=== PATIENT | female | born 1960 | race Caucasian/White ===

== ENCOUNTER → 2022-09-14 09:08 | Outpatient (CLI) | payer MEDICARE, SELFPAY ==
--- NOTE | 2022-09-14 09:21 | XR_ITS ---
FINAL REPORT CLINICAL HISTORY: Pain @ xiphoid process radiating to the Rt, around flank to thoracic region. NKT. MRI to follow FINDINGS: THORACIC SPINE Two views demonstrate no acute fracture. There are mild and moderate degenerative changes. There is no malalignment. IMPRESSION: Degenerative changes as above. Reviewed, Interpreted and Dictated by Lazaro Lawrence III, MD Transcribed by Karin Camp Authenticated and [facility]
== END ==
LOC: RAD 09:14
PROVIDERS: PCP Nurse Practitioner Family; Visit Provider Nurse Practitioner Family
DX: M54.6 Pain in thoracic spine (principal)
CPT/HCPCS: 72072

== ENCOUNTER → 2022-10-17 09:48 | Outpatient (POV) | payer MEDICARE, SELFPAY | PROVIDERS: Visit Provider Dermatology | DX: Z00.00 Encounter for general adult medical examination without abnormal findings (principal) ==

== ENCOUNTER → 2022-11-23 08:47 | Outpatient (POV) | payer MEDICARE, SELFPAY ==
[2022-11-23 09:54] VITALS: BP 132/66; PULSE 71; RESP 19; O2SAT 96; BMI 39.9
--- NOTE | 2022-11-23 12:14 | EXP.PAIN.OV ---
HPI Data of Consult Patient: new to practice Consult date: 11/23/22 Requesting Physician: Samantha Linares APRN Primary Care Provider: Eugenio Richards MD Consult Narrative Reason for consult: Mid back pain, right abdomen pain History of present illness: Ms. Brewster is a 62 year old female who presents today as a new patient. She is a referral from Anisha Staley's office. Today she rates her pain a 4 out of 10. Patient states her pain is all in her mid back that radiates into her right abdomen. Patient describes this as an aching, throbbing sensation with occasional sharp shooting pains. She states that the ache is constant. She states this has been going on for over 1 year. Patient states she has had a complete work-up with GI specialist Gold ambrose and had endoscopic procedures with no acute findings. Patient denies any specific trauma or injury that initially led to her issues. Patient states that she was ordered a brace that does help with some of her pain. She states that typically when the stomach pain starts it does cause additional bloating and additional pain. Patient states she has had previous gallbladder removal. Patient denies any previous physical therapy or injection therapy. Patient states she is not interested in injections at this time. Patient is not on any scheduled medications. Her John is [id number]. Its been reviewed and appropriate. Patient does state that unrelated she does have a history of low back pain and had a previous discectomy which ultimately led to her being on disability and that this is a workers comp issue. CC: Samantha Linares APRN [facility] Disclaimer: The information contained in this section may have been updated after the patient was seen, as this information can be updated by other users. Medical History (Updated 11/23/22 @ 12:21 by Samantha Linares APRN) Depression GERD (gastroesophageal reflux disease) H. pylori infection HTN (hypertension) Menieres disease Skin cancer Vaginal cancer Surgical History H/O colonoscopy H/O endoscopy H/O removal of cyst H/O shoulder surgery History of total right knee replacement Hx of cholecystectomy Family History (Updated 11/23/22 @ 09:56 by Kyara Raymond RN) Other Cancer Coronary artery disease Diabetes Social History (Updated 11/23/22 @ 09:59 by Kyara Raymond RN) Smoking Status: Never smoker alcohol intake: never current occupational status: unemployed Travel in the last 8 weeks: None Review of Systems Review of Systems Review of systems:: pertinent systems reviewed and negative unless documented below Review of systems (narrative): Review of Systems: General: No recent weight changes, no fever, no sleep disturbances Respiratory: No cough, no shortness of air, no recurring pulmonary infections Cardiovascular/peripheral vascular: No chest pain, no palpitations, no edema, no shortness of breath Gastrointestinal: No new onset incontinence, normal bowel movements reported Genitourinary: No new onset incontinence Musculoskeletal: Mid back pain, right abdomen pain Psychiatric: [Normal mood/affect] Neurological: [Denies weakness in extremities], [denies balance issues] Meds Home Medications and Allergies Home Medications Medication Instructions Recorded Confirmed Type carvedilol 12.5 mg tablet 12.5 mg PO BID BLOOD PRESSURE 11/23/22 11/23/22 History loratadine 10 mg tablet 10 mg PO DAILY ALLERGIES 11/23/22 11/23/22 History pantoprazole 40 mg tablet,delayed 40 mg PO DAILY GERD 11/23/22 11/23/22 History release New Prescriptions to Start Prescriptions: Allergies Allergy/AdvReac Type Severity Reaction Status Date / Time CLAMS Allergy Unknown I-RASH Uncoded 02/27/17 15:19 From KEFLEX Allergy Unknown I-RASH Uncoded 02/27/17 15:19 LATEX Allergy Unknown I-RASH Uncoded 02/27/17 15:19 MANGOS Allergy Unknown I-RASH Uncoded 02/27/17 15:19 PCN (PENICILL
== END ==
PROVIDERS: PCP Internal Medicine Adolescent Medicine; Visit Provider Nurse Practitioner Family
DX: R10.9 Unspecified abdominal pain; M54.6 Pain in thoracic spine
CPT/HCPCS: 99202; G0463

== ENCOUNTER 2022-12-26 09:00 | Outpatient (RCR) | payer MEDICARE, SELFPAY ==
--- NOTE | 2022-12-11 10:25 | HMH.PTOPEV ---
PT Outpatient Evaluation Rehab PT Outpatient Evaluation Start: 12/11/22 10:13 Freq: Status: Active Protocol: Document 12/11/22 10:13 OSMANY (Rec: 12/11/22 10:25 OSMANY [id number]) E-signed By Joe Sawyer, PT Outpatient Therapy Subjective History Subjective History Pt reports insidious onset right sided upper quadrant abdmonial area pain beginning ~1 yr ago. Pt reports that discomfort progressed to pain in the right sided area of the mid back similar level to the anterior/abdominal pain. Pt reports intermittent episodes of mid back pain and abdominal pain since, with 'lots of diagnostic testing finding nothing in my belly or back, but I haven't gotten an MRI yet.' PMH:lumbar spine injury 30yrs ago-lead to disability. New diagnosis of cancer in past 12 No months? Chief Complaint Pain,Stiff,Catches/Locks Symptom Type Ache,Sharp,Dull,Stabbing Symptoms Relieved By Rest/Positioning Symptoms Aggravated By Bending/Stooping,Physical Activity,Twisting,Lifting Prior Functional Limitations Lifting,Housework,Driving, Bending/Stooping Current Functional Limitations Lifting,Housework,Driving, Bending/Stooping Symptom Description Constant but Variable Level of pain today (0-10) 3 Pain scale - at its best (0-10) 2 Pain scale - at its worst (0-10) 9 Shoulder/Elbow Eval Shoulder Objective Measurements Posture Shoulder Posture Sitting Position (L) Rounded,(R) Rounded Shoulder Posture Standing Position (L) Rounded,(R) Rounded Shoulder MMT Bilateral Anterior Deltoid Strength Grade 4 Good Shoulder Abduction Strength Grade 4 Good Elbow Objective Measurements Lumbopelvic Eval Posture Thoracic Spine Posture Standing Position Neutral Lumbar Spine Posture Standing Position Neutral,Flattened Gait Observation General Gait Pattern Observation No Deviations/Normal Palapation tenderness left thoracic spinal tenderness Yes: 2-3/4 midline and paraspinals right thoracic spinal tenderness Yes: 3/4 midline and paraspinals Lumbar/Sacral Palpation Findings Tenderness,Muscle Guarding Accessory Movement T-spine Vertebrae Accessory Movements Central [employer]/[facility] [place] that Elicit Symptoms T10 bilateral T11 bilateral Range of Motion Lumbar Spine Active Flexion Range of 0-10 Motion (degrees) Lumbar Spine Active Extension Range of 0-10 Motion (degrees) Left Lumbar Spine Lateral Flexion Active 0-15 Range of Motion (degrees) Right Lumbar Spine Lateral Flexion 0-10 Active Range of Motion (degrees) Oswestry Index Section 1 Pain Intensity The pain comes and goes and is severe Section 2 Personal Care (Washing,Dresing) increase the pain and I find it necessary to change my way of doing it Section 3 Lifting I can only lift very light weights at most Section 4 Walking I have no pain when walking Section 5 Sitting Pain prevents me from sitting for more than 1/2 hour Section 6 Standing I have some pain on standing, but it does not increase with time Section 7 Sleeping Because of my pain, my normal night's sleep is less than 4 hours Section 8 Social Life Pain has restricted my social life and I do not go out often Section 9 Traveling I get extra pain while traveling which compels me to seek alternate fo Section 10 Changing Degreee of Pain My pain is neither getting better or worse Score and Risk Level Oswestry Sc 28 Oswestry Risk Level Severe Disability Outpatient Therapy Assessment Impairments Problems/Impairmments Palpation Tenderness,Impaired Range of Motion,Impaired Strength,Impaired Driving, Impaired Lifting,Impaired Household Care,Impaired Bending,Subjective C/O Pain, Impaired Self Care/Self Management Prognosis Rehab Potential Good Clinical Impression Consistent with Diagnosis Yes Short Term Goals Number of Weeks 4 Decreased Palpation Tenderness Yes: 1-2/4 thoracic spine/mm Increase Range of Motion Yes: thoraco-lumbar AROM 50-75 % of WFL Increase Strength Yes: 4/5 CORE MM Increase Ability to Drive/Ride in Car Yes: 30MIN Restore Ability to Lift Objects to Waist Yes: 10# Level Improve Ability For Household Care Yes: 30MIN Decrease Subjective C/O Pain Yes: 3-4/10 W/ABOVE ACTIVITES Patient to be Ind w/ 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 Number of Weeks 6-8 Decreased Palpation Tenderness Yes: 0-1/4 THORACIC SPINE/MM Increase Range of Motion Yes: WFL THORACO-LUMBAR SPINE Increase Strength Yes: WFL CORE MM Increase Ability to Drive/Ride in Car Yes: 60MIN Restore Ability to Lift Objects to Waist Yes: 20# Level Improve Ability For Household Care Yes: 60MIN Improve Ability to Bend Yes: WFL Decrease Subjective C/O Pain Yes: 0-2/10 W/ABOVE ACTIVITIES Patient to be Ind w/ Advanced HEP Yes Outpatient Therapy Plan of Care Treatment Plan May Include Therapeutic Exercise Including Home Yes Exercise Program Manual Therapy Techniques Yes Neuromuscular Re-education Yes Therapeutic Activities to Return to Yes Previous Functional/Work Level ADL/Self Care Education Yes Mechanical Traction Yes Dry Needling Yes Thermal Modalities Yes Electrical Stimulation Yes Ultrasound/Phonophoresis Yes Iontophoresis Yes Eval/Re-Eval Yes Frequency Times per week 2-3 Duration Number of Weeks 6-8 Addendums This patient is a candidate for social No or vocational rehab? Patient/Guardian verbally acknowledges Yes understanding of treatment program and consents to further treatment? Patient/Guardian verbally acknowledges Yes understanding of diagnosis, prognosis and goals for treatment? Eval Complexity PT Charges 16994 - Low Complexity PHYSICIAN CERTIFICATION: I certify the specified therapy services for Felisha Brewster are required, authorized, and reviewed every 30 days.
== END 2022-12-26 10:00 | disposition home or self-care (01) ==
LOC: PT 09:00
PROVIDERS: PCP Internal Medicine Adolescent Medicine; Visit Provider Nurse Practitioner Family
DX: M54.6 Pain in thoracic spine (principal)
CPT/HCPCS: 97010; 97014; 97035; 97110; 97140; 97163; G0283

== ENCOUNTER → 2022-12-27 09:36 | Outpatient (POV) | payer MEDICARE, SELFPAY ==
--- NOTE | 2022-12-27 09:43 | A.OFFVIS_ITS ---
[facility] Pain Management SOAP Note Subjective:: Patient is a pleasant 62-year-old female who presents today for 1 month follow- up. We are currently treating the patient for mid back pain, low back pain, abdominal pain. Today she rates her pain a 4 out of 10. She denies any new trauma or injury. She continues to describe this as an aching, throbbing sensation with occasional sharp shooting pains. S patient does continue to use a brace for some help with her pain. At her last visit we did order the patient physical therapy and a compounded cream. She does state that the compounded cream did provide significant improvements however she is going to physical therapy for 3 different sessions and it is making her pain worse. Patient states that she is frequently down for days following these visits due to the worsening pain symptoms. Her John has been reviewed and is appropriate. Review of Systems: General: No recent weight changes, no fever, no sleep disturbances Respiratory: No cough, no shortness of air, no recurring pulmonary infections Cardiovascular/peripheral vascular: No chest pain, no palpitations, no edema, no shortness of breath Gastrointestinal: No new onset incontinence, normal bowel movements reported Genitourinary: No new onset incontinence Musculoskeletal: Mid to low back pain Psychiatric: [Normal mood/affect] Neurological: [Denies weakness in extremities], [denies balance issues] Objective:: Physical Exam: General: Alert and oriented x3, no acute distress, pleasant and cooperative Lungs: Respirations even and unlabored, symmetrical chest expansion Eyes: PERRL Musculoskeletal: Flexion and extension of lumbar [spine] somewhat guarded secondary to pain, [antalgic gait noted] Neurological: Speech clear, no gross sensory deficit Assessment:: Mid back pain, low back pain, abdominal pain Plan:: Patient continues to experience significant pain in her mid back with radiating symptoms to her abdomen. I have discussed with the patient that I will proceed forward with ordering the MRI without contrast of her thoracic spine. Patient has tried physical therapy for several sessions however it is causing worsening pain. Patient has tried and failed conservative therapy such as oral medications, heat and ice and topicals and at home exercising and stretching for longer than 6 weeks. Patient will return to clinic in 1 month following her imaging for reevaluation of symptoms and plan of care. Patient has been instructed to contact the clinic with any concerns before the next appointment. Dr. Allen has reviewed this note and agrees with this plan of care. This note was dictated using voice recognition software and make contain errors or omissions. [facility] Disclaimer: The information contained in this section may have been updated after the patient was seen, as this information can be updated by other users. Medical History (Updated 11/23/22 @ 12:21 by Samantha Linares APRN) Depression GERD (gastroesophageal reflux disease) H. pylori infection HTN (hypertension) Menieres disease Skin cancer Vaginal cancer Surgical History H/O colonoscopy H/O endoscopy H/O removal of cyst H/O shoulder surgery History of total right knee replacement Hx of cholecystectomy Family History (Updated 11/23/22 @ 09:56 by Kyara Raymond, NANCY) Other Cancer Coronary artery disease Diabetes Social History (Updated 11/23/22 @ 09:59 by Kyara Raymond RN) Smoking Status: Never smoker alcohol intake: never current occupational status: unemployed Travel in the last 8 weeks: None
[2022-12-27 12:34] VITALS: BP 149/73; PULSE 75; RESP 18; O2SAT 96; BMI 39.1
== END ==
PROVIDERS: PCP Internal Medicine Adolescent Medicine; Visit Provider Nurse Practitioner Family
DX: M54.6 Pain in thoracic spine (principal); M54.50 Low back pain, unspecified; R10.9 Unspecified abdominal pain
CPT/HCPCS: 99212; G0463

== ENCOUNTER → 2023-01-24 09:13 | Outpatient (POV) | payer MEDICARE, SELFPAY ==
--- NOTE | 2023-01-24 09:36 | EXP.PAIN.SOA ---
[facility] Pain Management SOAP Note Subjective:: Patient is a pleasant 62-year-old female who presents today for follow-up of thoracic MRI. We are currently treating the patient for mid back pain, low back pain, abdominal pain. Today she rates her pain a 4 out of 10. She denies any change from our last visit here in clinic. Patient states she continues to have pain in her mid back and describes it as a aching, throbbing sensation. Patient does continue to use her compounded cream with some help. She does states she continues to have mid back pain that does radiate into her right side towards her abdomen. Patient has previously had ultrasounds and other diagnostic testing with no acute findings. Her John has been reviewed and is appropriate. Review of Systems: General: No recent weight changes, no fever, no sleep disturbances Respiratory: No cough, no shortness of air, no recurring pulmonary infections Cardiovascular/peripheral vascular: No chest pain, no palpitations, no edema, no shortness of breath Gastrointestinal: No new onset incontinence, normal bowel movements reported Genitourinary: No new onset incontinence Musculoskeletal: Mid back pain, abdominal pain Psychiatric: [Normal mood/affect] Neurological: [Denies weakness in extremities], [denies balance issues] Objective:: Physical Exam: General: Alert and oriented x3, no acute distress, pleasant and cooperative Lungs: Respirations even and unlabored, symmetrical chest expansion Eyes: PERRL Musculoskeletal: Flexion and extension of thoracic [spine] somewhat guarded secondary to pain, [antalgic gait noted] Neurological: Speech clear, no gross sensory deficit Assessment:: 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 I have discussed with the patient that in future she may benefit from a thoracic epidural at the T10-T11 vertebra where she did have a small disc bulge with moderate facet arthropathy and mild right foraminal narrowing and mild canal narrowing. Risk and benefits were discussed with the patient however she states she has had injections in the past and did not get any additional improvement however felt like these made her worse. I have also discussed with the patient in future she may be a beneficial candidate of a pain pump trial. We can discuss this at future visits. Patient denies any heart or kidney issues however states that she has tried Celebrex and meloxicam in the past with no improvement. I will send in a 2-week dose of diclofenac 50 mg twice daily. Patient has been counseled to discontinue all other NSAIDs while taking this medication. Patient will return to clinic in 2 weeks for reevaluation of symptoms and plan of care. Patient has been instructed to contact the clinic with any concerns before the next appointment. Dr. Allen has reviewed this note and agrees with this plan of care. This note was dictated using voice recognition software and make contain errors or omissions. [facility] Disclaimer: The information contained in this section may have been updated after the patient was seen, as this information can be updated by other users. Medical History (Updated 11/23/22 @ 12:21 by Samnatha Linares APRN) Depression GERD (gastroesophageal reflux disease) H. pylori infection HTN (hypertension) Menieres disease Skin cancer Vaginal cancer Surgical History H/O colonoscopy H/O endoscopy H/O removal of cyst H/O shoulder surgery History of total right knee replacement Hx of cholecystectomy Family History (Updated 11/23/22 @ 09:56 by Kyara Raymond RN) Other Cancer Coronary artery disease Diabetes Social History (Updated 11/23/22 @ 09:59 by Kyara Raymond RN) Smoking Status: Never smoker alcohol intake: never current occupational st
[2023-01-24 09:38] VITALS: BP 151/89; PULSE 76; RESP 18; O2SAT 95; BMI 39.1
== END | disposition home or self-care (01) ==
PROVIDERS: PCP Nurse Practitioner Family; Visit Provider Nurse Practitioner Family
DX: M51.14 Intervertebral disc disorders with radiculopathy, thoracic region (principal); M54.50 Low back pain, unspecified; R10.9 Unspecified abdominal pain
CPT/HCPCS: 99212; G0463

== ENCOUNTER 2023-05-04 09:15 | Outpatient (CLI) | payer MEDICARE, SELFPAY ==
--- NOTE | 2023-05-04 09:20 | XR_ITS ---
FINAL REPORT CLINICAL HISTORY: SCREENING FINDINGS: Using L1-4, the bone mineral density of the spine is 1.314 g/cm2, corresponding to T-score of 2.4. Using the left hip, the bone mineral density of the femoral neck is 0.899 g/cm2, corresponding to a T-score of -0.4. Using the right hip, the bone mineral density of the femoral neck is 0.858 g/cm2, corresponding to a T-score of 0.1. IMPRESSION: Normal bone mineral density of the lumbar spine and hips. NOTE: T-score: Standard deviation compared with peak bone mass of young adult mean. *Following the recommendations of the International Society of Bone densitometry, classification of hip BMD is based on the lower of two T-scores; total hip or femoral neck. Reviewed, Interpreted and Dictated by Kenneth Yeung MD Transcribed by Neris Yeh Authenticated and [facility]
--- NOTE | 2023-05-04 09:21 | MM_ITS ---
PROCEDURE INFORMATION: Exam: MG Bilateral Screening 3D Mammography Exam date and time: 05/04/2023 9:37 AM Age: 63 years old Clinical indication: Screening examination TECHNIQUE: Imaging protocol: Bilateral Screening tomosynthesis and 2D mammography including computer-aided detection (CAD) when performed. COMPARISON: 1. MG DMSB DIG MAMM-SCREEN JOSSELINE 07/23/2014 9:01 AM 2. MG DMSB DIGITAL MAMM-SCREEN BILATERAL 02/23/2011 12:57 PM FINDINGS: MAMMOGRAPHY: Breast composition: The breasts are almost entirely fatty. Mass: None. Architectural distortion: None. Calcifications: No suspicious calcifications. Asymmetric density: None. Skin thickening: None. Axillary adenopathy: None. IMPRESSION: No mammographic evidence of malignancy. Annual screening is recommended unless otherwise clinically indicated. ASSESSMENT: BI-RADS Category 1: Negative
== END 2023-05-04 23:59 ==
LOC: RAD 09:16
PROVIDERS: PCP Nurse Practitioner Family; Visit Provider Nurse Practitioner Family
DX: Z12.31 Encounter for screening mammogram for malignant neoplasm of breast (principal); Z78.0 Asymptomatic menopausal state; Z13.820 Encounter for screening for osteoporosis
CPT/HCPCS: 77063; 77067; 77080

== ENCOUNTER 2023-05-10 10:37 | Outpatient (CLI) | payer MEDICARE, SELFPAY ==
--- NOTE | 2023-05-10 10:42 | CT_ITS ---
FINAL REPORT TECHNIQUE: Thin section axial images were obtained through the lungs using a low-dose technique per lung cancer screening protocol. Reconstruction images were obtained using the axial data. Exam was performed using dose reduction technique. CLINICAL HISTORY: PERSONAL USE OF TOBACCO , previous smoker 1 ppd x 25 years, quit 1 year ago FINDINGS: CTDLvol: 2.9 DLP: 96.38 Former smoker 25 pack year history Lungs: No acute pulmonary abnormality. A 3 mm nodule along the left major fissure on axial image 40 is favored to represent a very small intrafissural lymph node. No additional pulmonary nodules are identified. There is evidence of prior granulomatous disease. Lymph nodes: No thoracic lymphadenopathy. Mediastinum: Heart size is normal. Pleura/pericardium: No pleural or pericardial effusion. Other: Limited evaluation of the upper abdomen reveals fatty liver. IMPRESSION: Probable very small intrafissural lymph node along the left major fissure. Otherwise no pulmonary nodules. Lung RADS: 2 Recommendation: 1 year follow-up low-dose chest CT. Authenticated and [facility]
== END 2023-05-10 23:59 ==
LOC: RAD 10:38
PROVIDERS: PCP Nurse Practitioner Family; Visit Provider Nurse Practitioner Family
DX: Z87.891 Personal history of nicotine dependence (principal)
CPT/HCPCS: 71271

== ENCOUNTER 2023-07-31 13:25 | Outpatient (POV) | payer MEDICARE, SELFPAY | END 2023-07-31 23:59 | disposition home or self-care (01) | LOC: SC 13:25 | PROVIDERS: PCP Nurse Practitioner Family; Visit Provider Dermatology | DX: Z00.00 Encounter for general adult medical examination without abnormal findings (principal) ==

== ENCOUNTER 2023-09-23 20:57 | Emergency (ER) | payer MEDICARE, SELFPAY ==
[2023-09-23 21:10] VITALS: BP 161/108; PULSE 89; RESP 15; TEMP 37; O2SAT 96; BMI 38.2
--- NOTE | 2023-09-23 21:20 | ED_ITS ---
<Statement entered by Harvey Chapin MD - 09/23/23 23:05> I was consulted by the STACI, and we discussed the complexity of the problems being addressed. I approved the treatment and management plan for this patient's care in the emergency department, thus performing a substantive portion of the medical decision making. Harvey Chapin MD Discharge Plan Disposition Patient Disposition: Home, Self-Care Condition: Good Prescriptions Prescriptions: No Action carvedilol 12.5 mg tablet 12.5 mg PO BID Patient Comments: TAKE 1 TABLET BY MOUTH TWICE DAILY pantoprazole 40 mg tablet,delayed release (DR/EC) 40 mg PO DAILY Patient Comments: TAKE 1 TABLET BY MOUTH ONCE DAILY loratadine 10 mg Tablet 10 mg PO DAILY diclofenac sodium 50 mg tablet,delayed release (DR/EC) 50 mg PO BID Qty: 28 0RF Referrals Follow up/Referrals: Garret Molina MD [Staff Physician] - See instructions (Hematuria) Anisha Staley APRN [Primary Care Provider] - See instructions Activity Restrictions/Add. Instructions Additional Instructions/Restrictions: You were evaluated in the emergency department today. You were found to have an incidental nodule on your adrenal gland. These usually do not cause symptoms or blood in your urine. For this, we usually recommend outpatient follow-up for repeat imaging as determined by your primary care provider to ensure that it is not enlarging. The radiologist is recommending a repeat evaluation in approximately 12 months. Follow-up with your [facility] as scheduled after your D&C. I have referred you to Dr. Molina for further evaluation of your hematuria. Return to ER for any worsening signs or symptoms as needed. Clinical Impressions Clinical Impression: Hematuria Qualifiers: Hematuria type: unspecified type Qualified Code(s): R31.9 - Hematuria, unspecified Instructions Patient Instructions: DI for Hematuria Discharge ED Provider: Harvey Chapin General Adult HPI <IVETTE Santos - Last Filed: 09/23/23 23:00> General Chief complaint: Urogenital-Female Stated complaint: D&C Sunday 09/17 at now peeing blood Time Seen by Provider: 09/23/23 21:20 Mode of Arrival: Family Vehicle Source of Information: Patient Limitations: No Limitations Description of Symptoms (Recalled from ER Triage Doc. by RN): 63 yo female presents with cc of bleeding with urination. States she had a d&c earlier this week for biopsy of possible CA cells; pt states she is having low back pain, been afebrile as far as she knows. No other symptoms. [facility]. History of Present Illness HPI narrative: Patient presents for evaluation of gross hematuria. Patient states that she recently underwent a D&C on Sunday [facility] in [place]. That was preceded by biopsy. She does not report any abdominal pain but slight backache. She is having to wear a pad post D&C. She denies chest pain fever chills hemoptysis hematochezia melena nausea vomit diarrhea. Related Data Home Medications Medication Instructions Recorded Confirmed carvedilol 12.5 mg tablet 12.5 mg PO BID BLOOD PRESSURE 11/23/22 01/24/23 loratadine 10 mg tablet 10 mg PO DAILY ALLERGIES 11/23/22 01/24/23 pantoprazole 40 mg tablet,delayed 40 mg PO DAILY GERD 11/23/22 01/24/23 release Previous Rx's Medication Instructions Recorded diclofenac sodium 50 mg 50 mg PO BID #28 tabs 01/24/23 tablet,delayed release Allergies Allergy/AdvReac Type Severity Reaction Status Date / Time CLAMS Allergy Unknown I-RASH Uncoded 02/27/17 15:19 From KEFLEX Allergy Unknown I-RASH Uncoded 02/27/17 15:19 LATEX Allergy Unknown I-RASH Uncoded 02/27/17 15:19 MANGOS Allergy Unknown I-RASH Uncoded 02/27/17 15:19 PCN (PENICILLIN) Allergy Unknown I-RASH Uncoded 02/27/17 15:19 SULFA (SULFONAMIDE) Allergy Unknown I-RASH Uncoded 02/27/17 15:19 TCN (TETRACYCLINE) Allergy Unknown I-RASH Uncoded 02/27/17 15:19 [facility] <IVETTE Santos - Last Filed: 09/23/23 23:00> [facility] Disclaimer: The information contained in this section may have been updated after the patient was seen, as this information can be updated by other users. Medical History (Updated 09/23/23 @ 22:25 by IVETTE Santos) GERD (gastroesophageal reflux disease) Vaginal cancer Skin cancer Menieres disease H. pylori infection HTN (hypertension) Depression Surgical History History of total right knee replacement H/O shoulder surgery Hx of cholecystectomy H/O removal of cyst H/O endoscopy H/O colonoscopy Family History (Updated 11/23/22 @ 09:56 by Kyara Raymond RN) Other Cancer Coronary artery disease Diabetes Social History (Updated 11/23/22 @ 09:59 by Kyara Raymond, NANCY) Smoking Status: Unknown if ever smoked alcohol intake: never current occupational status: unemployed Travel in the last 8 weeks: None <IVETTE Santos - Last Filed: 09/23/23 23:00> ROS Obtained: Yes Systems reviewed as appropriate & no additional complaints except as documented Physical Exam <IVETTE Santos - Last Filed: 09/23/23 23:00> General General appearance: alert and in no apparent distress Respiratory Respiratory exam: Present normal lung sounds bilaterally Cardiovascular Cardiovascular exam: Present regular rate and normal rhythm Abdominal Exam Abdominal exam: Present soft, tenderness (Mild tenderness to palpation in the lower quadrants without rebound or guarding or rigidity.) and normal bowel sounds; Absent guarding, rebound or rigidity Neurological Exam Neurological exam: Present alert and oriented X3 Medical Decision Making <IVETTE Santos - Last Filed: 09/23/23 23:00> Medical Records Medical records reviewed: Yes I reviewed the patient's medical records. John Inquiry Pt receiving controlled substance: No Vital Signs: 09/23/23 21:10 09/23/23 22:27 09/23/23 23:09 Temperature 98.6 F Temperature Source Oral Pulse Rate 70 70 Pulse Rate [Right Brachial] 89 Respiratory Rate 15 Blood Pressure 157/81 H 130/66 Blood Pressure [Right Arm] 161/108 H Blood Pressure Mean [Right Arm] 125 Blood Pressure Source Blood Pressure Source [Right Arm] Automatic Cuff Blood Pressure Position 02 Sat by Pulse Oximetry 96 95 95 Oxygen Delivery Method Room Air 09/23/23 23:31 09/24/23 00:20 Temperature 98.6 F Temperature Source Oral Pulse Rate 75 66 Pulse Rate [Right Brachial] Respiratory Rate 18 Blood Pressure 118/73 135/79 Blood Pressure [Right Arm] Blood Pressure Mean [Right Arm] Blood Pressure Source Automatic Cuff Blood Pressure Source [Right Arm] Blood Pressure Position Sitting 02 Sat by Pulse Oximetry 95 Oxygen Delivery Method Room Air Lab Data Lab results reviewed: Yes I reviewed the patient's lab results. Lab Results 09/23/23 21:26: WBC 10.1, RBC 4.41, Hgb 14.1, Hct 42.1, MCV 95.4, MCH 31.9 H, MCHC 33.4, RDW 14.5, Plt Count 304, MPV 7.8, Neut % (Auto) 65.4, Lymph % (Auto) 27.5, Emmet % (Auto) 3.3, Eos % (Auto) 2.5, Baso % (Auto) 1.3, Neut # (Auto) 6.6, Lymph # (Auto) 2.8, Emmet # (Auto) 0.3, Eos # (Auto) 0.3, Baso # (Auto) 0.1, PT 10.1, INR 0.89 L, Sodium 140, Potassium 4.4, Chloride 105, Carbon Dioxide 29, Anion Gap 10.4, BUN 13, Creatinine 1.10 H, Estimated Creat Clear 85, Estimated GFR 50 L, Est GFR ( Amer) 61, Glucose 108 H, Calcium 9.3, Total Bilirubin 0.5, AST 36, ALT 39, Alkaline Phosphatase 104, Total Protein 7.3, Albumin 4.2, Globulin 3.1, Albumin/Globulin Ratio 1.4 09/23/23 21:46: Urine Color Yellow, Urine Appearance Clear, Urine pH 6.5, Ur Specific [place] 1.015, Urine Protein Negative, Urine Glucose (UA) Negative, Urine Ketones Negative, Urine Blood 1+, Urine Nitrate Negative, Urine Bilirubin Negative, Urine Urobilinogen 0.2, Ur Leukocyte Esterase Negative, Urine RBC 3-5, Urine WBC None, Ur Squamous Epith Cells None, Urine Bacteria None 09/23/23 21:26 09/23/23 21:26 Orders (Tests/Meds): ED MEDICATIONS Discontinued Medications Generic Name Dose Route Start Last Admin Trade Name Freq PRN Reason Stop Dose Admin Iopamidol 75 ml 09/23/23 22:39 09/23/23 22:40 Iopamidol-370 (76%);100ml Bottle IV 09/23/23 22:40 75 ml ONCE ONE Administration Ondansetron HCl 4 mg 09/23/23 22:29 09/23/23 22:29 Ondansetron 4mg/2ml Vial IV 09/23/23 22:30 4 mg ONCE ONE Administration ORDERS Category Date Time Status CT abdomen pelvis w con Stat Cat Scan 09/23/23 21:24 Completed Complete Blood Count Auto Diff Stat Lab 09/23/23 21:26 Completed Comprehensive Metabolic Panel Stat Lab 09/23/23 21:26 Completed PT INR [Prothrombin Time INR] Stat Lab 09/23/23 21:26 Completed Urinalysis and Microscopic Stat Lab 09/23/23 21:46 Completed Medical Decision Narrative: In summary patient is a 63-year-old female who presents to the emergency department for evaluation of gross hematuria. Patient is hemodynamically stable upon arrival, afebrile. Physical exam is remarkable for some bilateral lower quadrant tenderness but no rebound or guarding or rigidity. Bowel sounds normal active. Differential diagnosis includes cystitis versus kidney stone versus Márquez trauma etc. Initial workup will be conducted with hematologic labs CT scan abdomen pelvis with contrast urinalysis. Initial interventions were considered however patient is hemodynamically stable currently thus no interventions are warranted for now. Initial workup reviewed by me shows that her hematologic labs are nonactionable and her urinalysis only shows microscopic hematuria of 3-5 indicating not edna bleeding. Informed interpretation of CT scan abdomen pelvis does not show any acute processes however formal radiology read is pending at the time of handoff to Dr. Pereira at 2300 hrs. Given this patient is appropriate for discharge with referral to urology for further workup of hematuria. Patient to keep her scheduled appointment with [facility] after her D&C. <Samantha Pereira, DO - Last Filed: 09/24/23 00:29> Vital Signs: 09/23/23 21:10 09/23/23 22:27 09/23/23 23:09 Temperature 98.6 F Temperature Source Oral Pulse Rate 70 70 Pulse Rate [Right Brachial] 89 Respiratory Rate 15 Blood Pressure 157/81 H 130/66 Blood Pressure [Right Arm] 161/108 H Blood Pressure Mean [Right Arm] 125 Blood Pressure Source Blood Pressure Source [Right Arm] Automatic Cuff Blood Pressure Position 02 Sat by Pulse Oximetry 96 95 95 Oxygen Delivery Method Room Air 09/23/23 23:31 09/24/23 00:20 Temperature 98.6 F Temperature Source Oral Pulse Rate 75 66 Pulse Rate [Right Brachial] Respiratory Rate 18 Blood Pressure 118/73 135/79 Blood Pressure [Right Arm] Blood Pressure Mean [Right Arm] Blood Pressure Source Automatic Cuff Blood Pressure Source [Right Arm] Blood Pressure Position Sitting 02 Sat by Pulse Oximetry 95 Oxygen Delivery Method Room Air Lab Data Lab Results 09/23/23 21:26: WBC 10.1, RBC 4.41, Hgb 14.1, Hct 42.1, MCV 95.4, MCH 31.9 H, MCHC 33.4, RDW 14.5, Plt Count 304, MPV 7.8, Neut % (Auto) 65.4, Lymph % (Auto) 27.5, Emmet % (Auto) 3.3, Eos % (Auto) 2.5, Baso % (Auto) 1.3, Neut # (Auto) 6.6, Lymph # (Auto) 2.8, Emmet # (Auto) 0.3, Eos # (Auto) 0.3, Baso # (Auto) 0.1, PT 10.1, INR 0.89 L, Sodium 140, Potassium 4.4, Chloride 105, Carbon Dioxide 29, Anion Gap 10.4, BUN 13, Creatinine 1.10 H, Estimated Creat Clear 85, Estimated GFR 50 L, Est GFR ( Amer) 61, Glucose 108 H, Calcium 9.3, Total Bilirubin 0.5, AST 36, ALT 39, Alkaline Phosphatase 104, Total Protein 7.3, Albumin 4.2, Globulin 3.1, Albumin/Globulin Ratio 1.4 09/23/23 21:46: Urine Color Yellow, Urine Appearance Clear, Urine pH 6.5, Ur Specific [place] 1.015, Urine Protein Negative, Urine Glucose (UA) Negative, Urine Ketones Negative, Urine Blood 1+, Urine Nitrate Negative, Urine Bilirubin Negative, Urine Urobilinogen 0.2, Ur Leukocyte Esterase Negative, Urine RBC 3-5, Urine WBC None, Ur Squamous Epith Cells None, Urine Bacteria None Orders (Tests/Meds): ED MEDICATIONS Discontinued Medications Generic Name Dose Route Start Last Admin Trade Name Freq PRN Reason Stop Dose Admin Iopamidol 75 ml 09/23/23 22:39 09/23/23 22:40 Iopamidol-370 (76%);100ml Bottle IV 09/23/23 22:40 75 ml ONCE ONE Administration Ondansetron HCl 4 mg 09/23/23 22:29 09/23/23 22:29 Ondansetron 4mg/2ml Vial IV 09/23/23 22:30 4 mg ONCE ONE Administration ORDERS Category Date Time Status CT abdomen pelvis w con Stat Cat Scan 09/23/23 21:24 Completed Complete Blood Count Auto Diff Stat Lab 09/23/23 21:26 Completed Comprehensive Metabolic Panel Stat Lab 09/23/23 21:26 Completed PT INR [Prothrombin Time INR] Stat Lab 09/23/23 21:26 Completed Urinalysis and Microscopic Stat Lab 09/23/23 21:46 Completed Medical Decision Narrative: In summary patient is a 63-year-old female who presents to the emergency department for evaluation of gross hematuria. Patient is hemodynamically stable upon arrival, afebrile. Physical exam is remarkable for some bilateral lower quadrant tenderness but no rebound or guarding or rigidity. Bowel sounds normal active. Differential diagnosis includes cystitis versus kidney stone versus Márquez trauma etc. Initial workup will be conducted with hematologic labs CT scan abdomen pelvis with contrast urinalysis. Initial interventions were considered however patient is hemodynamically stable currently thus no interventions are warranted for now. Initial workup reviewed by me shows that her hematologic labs are nonactionable and her urinalysis only shows microscopic hematuria of 3-5 indicating not edna bleeding. Informed interpretation of CT scan abdomen pelvis does not show any acute processes however formal radiology read is pending at the time of handoff to Dr. Pereira at 2300 hrs. Given this patient is appropriate for discharge with referral to urology for further workup of hematuria. Patient to keep her scheduled appointment with [facility] after her D&C. Randall, DO: On my assessment of the patient, she is resting comfortably. Labs are reassuring with no significant leukocytosis, anemia, or other concerns. She does have blood in her urine but it is not concerning for infection with negative leukocyte esterase, nitrates, white blood cells, and bacteria. CT scan independently interpreted by myself does not demonstrate any large bladder masses. Please see radiology read for final interpretation. They noted incidental adrenal adenoma. I notified patient of this and advised that she should follow-up closely outpatient for monitoring. Ultimately, no other findings noted, and exam is reassuring. Given this, I feel that she is appropriate for discharge home with close follow-up with urology as well as gynecology. She was given strict return precautions and was discharged after all questions were answered with instructions for supportive management of likely benign hematuria Critical Care <IVETTE Santos - Last Filed: 09/23/23 23:00> Critical Care Time Critical Care Time: No
--- NOTE | 2023-09-23 21:24 | CT_ITS ---
PROCEDURE INFORMATION: Exam: CT Abdomen And Pelvis With Contrast Exam date and time: 09/23/2023 9:52 PM Age: 63 years old Clinical indication: Other: Gross hematuria; Prior surgery; Surgery date: <1 month; Surgery type: D/c; Additional info: Gross hematuria, recent d c TECHNIQUE: Imaging protocol: Computed tomography of the abdomen and pelvis with contrast. Radiation optimization: All CT scans at this facility use at least one of these dose optimization techniques: automated exposure control; mA and/or kV adjustment per patient size (includes targeted exams where dose is matched to clinical indication); or iterative reconstruction. Contrast material: ISOVUE; Contrast volume: 75 ml; Contrast route: IV; COMPARISON: CT LUNG SCREENING 05/10/2023 10:47 AM FINDINGS: Lungs: No acute finding. Liver: There is hepatic steatosis. Gallbladder and biliary ducts: The gallbladder is absent. There is no biliary ductal dilation. Pancreas: Normal. No ductal dilation. Spleen: Normal. No splenomegaly. Adrenal glands: There is a 15 x 14 mm left adrenal nodule. Kidneys and ureters: Normal. No hydronephrosis. Stomach and bowel: There is left colon diverticulosis without acute inflammation. No bowel obstruction. No mucosal thickening. Appendix: No evidence of appendicitis. Intraperitoneal space: Unremarkable. No free air. No significant fluid collection. Vasculature: Unremarkable. No abdominal aortic aneurysm. Lymph nodes: Unremarkable. No enlarged lymph nodes. Urinary bladder: Unremarkable as visualized. Reproductive: Unremarkable as visualized. Bones/joints: Prominent facet arthropathy from L3-L4 through L5-S1. Severe degenerative disc disease at L5-S1. Ephe-ve-[id number] degenerative change in both hips. No acute fracture. Soft tissues: Unremarkable. IMPRESSION: 1. There is no acute process evident within the abdomen or pelvis. 2. 14 x 15 mm left adrenal nodule. Not well appreciated on the low CT lung screening study from 05/10/2023. In a patient with no cancer history, consider 12 month follow-up adrenal CT. (Reference: Jessica) 3. Other nonurgent findings as detailed. REFERENCES: Jessica BARBOUR et al. Management of Incidental Adrenal Masses: A White Paper of the ACR Incidental Findings Committee. J Am Emmanuel Radiol. 2017;14(8):7398-9865.
[2023-09-23 21:33] LABS: Basophils # 0.1 K/mm3 (0-0.2); Basophils % 1.3 % (0.1-2.0); Eosinophils # 0.3 K/mm3 (0.0-0.4); Eosinophils % 2.5 % (0.1-12.0); Hematocrit 42.1 % (37.0-47.0); Hemoglobin 14.1 g/dL (12.2-16.2); Lymphocytes # 2.8 K/mm3 (0.7-4.5); Lymphocytes % 27.5 % (10-50); Mean Corpuscular HGB Conc 33.4 g/dL (31.8-35.4); Mean Corpuscular Hemoglobin 31.9 pg (27.0-31.2); Mean Corpuscular Volume 95.4 fl (81-99); Mean Platelet Volume 7.8 fl (7.4-10.4); Monocytes # 0.3 K/mm3 (0.1-1.0); Monocytes % 3.3 % (1.7-9.3); Neutrophils # 6.6 K/mm3 (1.8-7.8); Neutrophils % 65.4 % (37.0-80.0); Platelet Count 304 K/mm3 (142-424); Red Blood Count 4.41 M/mm3 (4.20-5.40); Red Cell Distribution Width 14.5 % (11.5-17.5); White Blood Count 10.1 K/mm3 (4.8-10.8)
[2023-09-23 21:42] LABS: Chloride 105 mmol/L (98-107); Sodium 140 mmol/L (136-145)
[2023-09-23 21:43] LABS: Potassium 4.4 mmoL/L (3.5-5.1)
[2023-09-23 21:45] LABS: Alanine Aminotransferase 39 U/L (12-78); Albumin Level 4.2 g/dl (3.5-5.0); Albumin/Globulin Ratio 1.4 (1.1-1.8); Alkaline Phosphatase 104 U/L (38-126); Anion Gap 10.4 mEq/L (5-15); Aspartate Amino Transferase 36 U/L (14-36); Bilirubin,Total 0.5 mg/dl (0.2-1.3); Blood Urea Nitrogen 13 mg/dl (7-17); Carbon Dioxide 29 mmol/L (22.0-30.0); Creatinine Clearance Estimated 85 mL/min (50-200); Estimated Glomerular Filt Rate 50 ml/min (>60); GFR (African American) 61 ML/MIN (>60); Globulin 3.1 g/dL (1.3-3.2); Total Protein,Serum 7.3 g/dl (6.3-8.2)
[2023-09-23 21:46] LABS: Calcium 9.3 mg/dl (8.4-10.2); Glucose 108 mg/dl (74-100)
[2023-09-23 21:47] LABS: INR 0.89 (0.9-1.1); Prothrombin Time 10.1 seconds (10.1-12.5)
[2023-09-23 21:51] LABS: Microscopic, Urine URINE MICROSCOPIC (MICROSCOPIC)
[2023-09-23 21:52] LABS: Appearance,Urine CLEAR (Clear); Bilirubin,Urine Negative (Negative); Blood, Urine 1+ (Negative); Color,Urine YELLOW (Yellow); Glucose,Urine (UA) Negative (Negative); Ketones,Urine Negative (Negative); Leukocyte Esterase,Urine Negative (Negative); Nitrate,Urine Negative (Negative); PH,Urine 6.5 (5.0-8.5); Protein,Urine Negative (Negative); Specific Gravity, Urine 1.015 (1.005-1.030); Urobilinogen,Urine 0.2 EU/dl (0.2)
[2023-09-23 22:27] VITALS: BP 157/81; PULSE 70; O2SAT 95
[2023-09-23] MEDS: ONDANSETRON 4MG/2ML VIAL 4 MG IV (22:29)
[2023-09-23] MEDS: IOPAMIDOL-370 (76%);100ML BOTTLE 75 ML IV (22:40)
[2023-09-23 23:09] VITALS: BP 130/66; PULSE 70; O2SAT 95
--- NOTE | 2023-09-23 23:09 | PC.NURSE ---
2100 was notified from paul adrian rn that pt requested having iv dc's because it was painful. Pual adrian DC IV. 20 G IV inserted to LAC by this RN @2114
--- NOTE | 2023-09-23 23:11 | PC.NURSE ---
rounded on pt at this time pt voices no needs.
[2023-09-23 23:31] VITALS: BP 118/73; PULSE 75; O2SAT 95
--- NOTE | 2023-09-23 23:47 | PC.NURSE ---
rounded on pt at this time. pt voices no needs.
[2023-09-24 00:20] VITALS: BP 135/79; PULSE 66; RESP 18; TEMP 37; O2SAT 95
== END 2023-09-24 00:22 | disposition home or self-care (01) ==
PROVIDERS: Emergency Provider Emergency Medicine; PCP Nurse Practitioner Family
DX: K21.9 Gastro-esophageal reflux disease without esophagitis; I10 Essential (primary) hypertension; R10.813 Right lower quadrant abdominal tenderness; R10.814 Left lower quadrant abdominal tenderness; R31.9 Hematuria, unspecified; M54.59 Other low back pain
CPT/HCPCS: 74177; 80053; 81001; 85025; 85610; 96374; 99284; J2405; Q9967

== ENCOUNTER 2024-05-13 07:55 | Outpatient (CLI) | payer MEDICARE, SELFPAY ==
--- NOTE | 2024-05-13 07:59 | MM_ITS ---
PROCEDURE INFORMATION: Exam: MG Bilateral Screening 3D Mammography Exam date and time: 05/13/2024 8:00 AM Age: 64 years old Clinical indication: Screening examination TECHNIQUE: Imaging protocol: Bilateral Screening tomosynthesis and 2D mammography including computer-aided detection (CAD) when performed. COMPARISON: 1. MG MM DIG SCREENING MAMM BI W/CAD 05/04/2023 9:37 AM 2. MG DMSB DIG MAMM-SCREEN JOSSELINE 07/23/2014 9:01 AM FINDINGS: MAMMOGRAPHY: Breast composition: The breasts are almost entirely fatty. Mass: No suspicious masses. Architectural distortion: None. Calcifications: No suspicious calcifications. Asymmetric density: None. Skin thickening: None. Axillary adenopathy: None. IMPRESSION: No mammographic evidence of malignancy. Annual screening is recommended unless otherwise clinically indicated. ASSESSMENT: BI-RADS Category 1: Negative.
--- NOTE | 2024-05-13 07:59 | CT_ITS ---
FINAL REPORT CLINICAL HISTORY: SCREENING FORMER SMOKER QUIT 1 YEAR AGO, 1PPD X46 YEARS COMPARISON: 05/10/2023 FINDINGS: CT CHEST LOW DOSE SCREENING HISTORY: Screening exam for lung cancer. DOSE: CTDI vol: 2.90 mGy, DLP: 92.73 mGy*cm TECHNIQUE: Axial CT without IV contrast administration using low dose protocol. This study was performed with techniques to keep radiation doses as low as reasonably achievable, (ALARA). Individualized dose reduction techniques using automated exposure control or adjustment of mA and/or kV according to the patient's size were employed. No acute lung disease is present. There is a stable 2 mm nodule in the left lower lobe on image 38 along the major fissure. No new lesions are identified. No pleural or pericardial effusion is seen. No adenopathy or mass lesion is present. IMPRESSION: No evidence of lung neoplasm. LUNG RADS CATEGORY 2 RECOMMENDATION: 12 month LDCT follow up Reviewed, Interpreted and Dictated by Cherri Huggins MD Transcribed by Dori Graham Authenticated and [facility]
== END 2024-05-13 23:59 | disposition home or self-care (01) ==
LOC: RAD 07:55
PROVIDERS: PCP Nurse Practitioner Family; Visit Provider Nurse Practitioner Family
DX: Z87.891 Personal history of nicotine dependence (principal); Z12.31 Encounter for screening mammogram for malignant neoplasm of breast
CPT/HCPCS: 71271; 77063; 77067